=== PATIENT | female | born 1995 | race Caucasian/White ===

== ENCOUNTER 2019-12-28 21:25 | Emergency (ER) | payer OTHER ==
[~2019-12-28] VITALS: Ht 165.1 cm; Wt 68.0 kg
[2019-12-28 21:31] VITALS: BP_SYST 131
[2019-12-29 02:52] LABS: BASOPHILS # (AUTO) 0.1 K/uL (0.0-0.2); EOSINOPHILS # (AUTO) 0.3 K/uL (0.0-0.4); HEMATOCRIT 29.7 % (36-48); HEMOGLOBIN 9.1 g/dL (12.0-16.0); LYMPHOCYTES % (AUTO) 33.3 % (20.5-51.5); MEAN CORPUSCULAR HEMOGLOBIN 19 pg (27-31); MEAN CORPUSCULAR HGB CONC 31 % (32-36); MONOCYTES # (AUTO) 0.7 K/uL (0.0-1.0); MONOCYTES % (AUTO) 7.4 % (1.7-9.3); NEUTROPHILS # (AUTO) 4.9 K/uL (1.8-7.7); NEUTROPHILS % (AUTO) 55.3 % (40.0-70.0); PLATELET COUNT (AUTO) 364 K/uL (130-430); RED BLOOD CELL COUNT(AUTO) 4.71 MIL/uL (4.2-6.2); WHITE BLOOD COUNT (AUTO) 8.9 K/uL (4.8-10.8)
[2019-12-29 02:54] LABS: MEAN CORPUSCULAR VOLUME 63 fL (79.0-98.0)
[2019-12-29 03:03] LABS: CALCIUM 8.7 mg/dL (8.4-11.0); CREATININE 0.95 mg/dL (0.55-1.30); POTASSIUM 3.7 mmol/L (3.5-5.1)
[2019-12-29 03:05] LABS: PROTHROMBIN TIME 9.9 SECS (9.5-12.5)
[2019-12-29 03:09] LABS: ALBUMIN 3.9 g/dL (3.4-4.8); TOTAL BILIRUBIN 0.4 mg/dL (0.0-1.0)
[2019-12-29 05:00] VITALS: BP_SYST 115
== END 2019-12-29 01:03 | disposition short-term general hospital (02) ==
LOC: SED 21:25
DX: S19.82XA Other specified injuries of cervical trachea, initial encounter (principal); M54.2 Cervicalgia; R07.89 Other chest pain; V49.9XXA Car occupant (driver) (passenger) injured in unspecified traffic accident, initial encounter; Y93.89 Activity, other specified; Y92.413 State road as the place of occurrence of the external cause; Y99.8 Other external cause status
CPT/HCPCS: 36415; 71250-TC; 72125-TC; 72170-TC; 73590-TC; 80053; 85025; 85610-TC; 99285